=== PATIENT | male | born 1950 | race Caucasian/White ===

== ENCOUNTER → 2023-01-26 | Outpatient (CLI) | payer OTHER ==
--- NOTE | 2023-01-26 17:43 | CTL ---
EXAMINATION TYPE: CT Low Dose Lung DATE OF EXAM ORDERED: 01/26/2023 HISTORY: Smoking. Lung cancer screening CT DLP: History mGycm CT CTDI: 1.5 mGy Automated exposure control for dose reduction was used. SCREENING VISIT: Initial COMPARISON: None TECHNIQUE: Low dose computed tomography scan was performed through the chest at 1 mm thick sections a nd reconstructed images in the coronal plane at [address] DIAGNOSTIC QUALITY: Satisfactory FINDINGS: LUNG NODULES: None. 1. There is a 0.6 cm peripheral nodule left mid lung. Series 6 image 31 2. There is a 0.5 cm nodule peripheral right mid lung. Series 6 image 36 3. There is an area of pneumonitis in the posterior lateral right lung. Series 6 image 39. 4. There is a 0.2 cm peripheral nodule right lung. Series 6 image 40. 5. Apical scarring appears to be present. LUNGS: COPD: Severity: Moderately extensive Fibrosis: Severity: None Lymph nodes: None Other findings: None RIGHT PLEURAL SPACE: Effusion: None Calcification: None Thickening: None Pneumothorax: None LEFT PLEURAL SPACE: Effusion: None Calcification: None Thickening: None Pneumothorax: None HEART: Heart Size: Normal Coronary calcification: Moderate Pericardial effusion: None OTHER FINDINGS: Upper abdomen: Normal Bony thorax: Normal Supraclavicular region: Normal Other: Ascending thoracic aorta at the level the main pulmonary artery measures 4.0 cm. The main pul monary artery at the bifurcation measures 3.0 cm. IMPRESSION: Probably benign findings FOLLOW UP CT CHEST RECOMMENDATION: Follow-up CT chest [address] LUNG RAD: Lung-Rad 3 Probably Benign
== END | disposition home or self-care (01) ==
LOC: RADCTMAIN 10:43
DX: Z12.2 Encounter for screening for malignant neoplasm of respiratory organs (principal); F17.210 Nicotine dependence, cigarettes, uncomplicated
CPT/HCPCS: 71271

== ENCOUNTER → 2023-06-05 | Day surgery (SDC) | payer OTHER ==
[2023-05-31 11:34] VITALS: BMI 18.6
[~2023-06-05] MED LIST: ALPRAZolam 0.25 MG TAB PO PRN; ALPRAZolam 0.5 MG TAB PO PRN; ASPIRIN 325 MG TAB PO STA; HEPARIN SODIUM 1,000 UN/ML (10ML VL) IV ONE; HEPARIN SODIUM 1,000 UN/ML (10ML VL) ONE; HEPARIN SODIUM,PORCINE (1 ML) 2,500 UNIT in SODIUM CHLORIDE 0.9% 250 ML IRRIGATION PRN; HEPARIN SODIUM,PORCINE 10,000 UNIT in SODIUM CHLORIDE 0.9% 1,000 ML IRRIGATION PRN; IOPAMIDOL-370 100ML BTL INJ ONE; LIDOCAINE 1% INJ 10MG/ML (20 ML MDV) ONE; LIDOCAINE 1% INJ 10MG/ML (20 ML MDV) SQ ONE; METOPROLOL TARTRATE 50 MG TAB PO SCH; NITROGLYCERIN SL TABS 0.4 MG TAB SUBLINGUAL PRN; RX INFO: IV CONTRAST WAS GIVEN 1 EACH MISC MISCELLANE PRN; SACUBITRIL/VALSARTAN 24 MG-26 MG TABLET PO SCH; SODIUM CHLORIDE 0.9% 1,000 ML IV SCH; SODIUM CHLORIDE 0.9% 1,000 ML in EMPTY BAG 1 BAG IV SCH; VERAPAMIL 2.5 MG/ML 2 ML AMP ONE; VERAPAMIL SYRINGE (5 MG/10 ML) INTRAARTER ONE; fentaNYL (PF) 50 MCG/ML 2 ML AMP IVP ONE; fentaNYL (PF) 50 MCG/ML 2 ML AMP ONE
[2023-06-05 10:28] LABS: Basophils % (A) 0 %; Eosinophils # (A) 0.1 k/uL (0-0.7); Eosinophils % (A) 1 %; HCT 45.6 % (39.0-53.0); HGB 15.4 gm/dL (13.0-17.5); Lymphocytes # (A) 1.8 k/uL (1.0-4.8); Lymphocytes % (A) 20 %; MCH 33.9 pg (25.0-35.0); MCHC 33.8 g/dL (31.0-37.0); MCV 100.4 fL (80.0-100.0); Mean Platelet Volume 7.3; Monocytes # (A) 0.6 k/uL (0-1.0); Monocytes % (A) 7 %; Neutrophils # (A) 6.1 k/uL (1.3-7.7); Neutrophils % (A) 69 %; Platelet Count 229 k/uL (150-450); RBC 4.54 m/uL (4.30-5.90); RDW 13.5 % (11.5-15.5); WBC 8.8 k/uL (3.8-10.6)
[2023-06-05 10:41] LABS: African American GFR (CKD) >90 (>60 ml/min/1.73 sqM); Anion Gap 8 mmol/L; Blood Urea Nitrogen 7 mg/dL (9-20); Calcium 9.1 mg/dL (8.4-10.2); Carbon Dioxide 29 mmol/L (22-30); Chloride 91 mmol/L (98-107); Glucose 88 mg/dL (74-99); Non-African American GFR(CKD) >90 (>60 ml/min/1.73 sqM); Sodium 128 mmol/L (137-145)
[2023-06-05 10:54] LABS: Potassium 4.6 mmol/L (3.5-5.1)
[2023-06-05 11:01] VITALS: TEMP 96.9
[2023-06-05 12:12] LABS: O2 Sat Blood Gas 65.4 %
[2023-06-05 12:14] LABS: O2 Sat Blood Gas 95.8 %
[2023-06-05 12:15] LABS: O2 Sat Blood Gas 68.4 %
--- NOTE | 2023-06-05 12:56 | P.CARDCATH ---
Date of Procedure: 06/05/23 Description of Procedure: Cardiac Catheterization: The patient is a 73-year-old male with a known history of chronic tobacco use, hypertension was found to have atrial fibrillation and severe cardiomyopathy. Recommendations were made regarding cardiac catheterization, the risks and the complications were discussed with the patient who is in full understanding and agreement. Procedure Description: Patient was brought to quality assurance qa lab analyst in fasting semi-sedated state after receiving Fentanyl and Benadryl achieiving moderate conscious sedated state. Using Xylocaine Anesthesia and modified Seldinger technique, a 6-Austrian sheath was introduced in the right radial artery . Intravenous catheter in the right bas ilic vein was exchanged the 6-Austrian sheath. Right heart catheterization was performed using a Home-Ritchie catheter, multiple samples and pressures were obtained, cardiac output by thermodilution was calculated. Subsequently, selective coronary angiography was performed using a 5-Austrian 5 bend right Sasha and 3.5 left Sasha catheter. Multiple views of the coronary artery including hemiaxial views were obtained. The right Sasha catheter was used to cross the aortic valve and LVEDP was calculated. Following that, catheter and sheath were removed. Hemostasis was obtained with deployment of vascular band . There was no immediate complication. Patient was returned to room in stable condition. Of note, the patient received a total of 3500 units of intravenous heparin as well as intra-arterial verapamil. Findings: Fluoroscopy: Severe calcifications of all the coronary arteries was noted. Left main: This is a large-size vessel, bifurcating into LAD and left circumflex, left main has no obstructive disease. LAD: This is a large-size vessel, reaching to the apex, giving rise to a large diagonal branch. The LAD is severely calcified throughout its course but has no evidence of focal disease area Left circumflex: This is a large nondominant vessel giving rise to 3 obtuse marginal branch. The left circumflex has no evidence of high-grade stenosis RCA: This is a large dominant vessel, bifurcating distally to PDA and PLV. Heavily calcified throughout its course. At the distal segment there is an eccentric lesion of 50-60% stenosis, the rest of the vessel has no focal stenosis Left Ventriculogram: Not performed Hemodynamics: Per my artery saturation 65%, right atrium 68%, arterial 96%. Cardiac output by thermodilution 4.2 L/m and by Helio 4.7 L/m. Pulmonary artery systolic pressure of 39 with a diastolic of 22 and a mean of 30 mmHg, pulmonary Wedge pressure V-wave of 25 with a mean of 25 mmHg. Right ventricle systolic pressure of 36 with end-diastolic of 10 mmHg. Right atrium V-wave of 8 with a mean of 7 mmHg. Left ventricle end-diastolic pressure 12-14 mmHg. There was no gradient across the aortic valve. Conclusion: 1. Severely calcified coronary arteries 2. Moderate disease in the mid RCA 3. Right dominance 4. No evidence of significant pulmonary hypertension Recommendations: I would recommend to maximize medical therapy, the right coronary artery lesion does not appear to be a culprit lesion. The importance of smoking cessation will be emphasized. The findings and the recommendations were discussed with the patient and the family and they were in full understanding and agreement. Duration of sedation is 41 minutes.
[2023-06-05 15:21] VITALS: BP 128/62; PULSE 72; RESP 14
== END | disposition home or self-care (01) ==
LOC: CATHCVL 09:49
PROVIDERS: ATTEND Internal Medicine Interventional Cardiology
DX: I25.10 Atherosclerotic heart disease of native coronary artery without angina pectoris (principal); I42.8 Other cardiomyopathies; I73.9 Peripheral vascular disease, unspecified; I48.91 Unspecified atrial fibrillation; I10 Essential (primary) hypertension; Z79.899 Other long term (current) drug therapy
CPT/HCPCS: 93460; 80048; 85018; 82810; 85025; C1769 ×2; C1894; C1751; J2001; J3010; J1644; Q9967

== ENCOUNTER → 2023-09-12 | Outpatient (CLI) | payer OTHER ==
--- NOTE | 2023-09-12 14:08 | CT ---
Exam: CT Chest without contrast. Date: 11/08/2023. Comparison: 01/26/2023. This History: Lung nodule. Technique: CT examination of the chest was performed without contrast. Coronal and sagittal reformats were performed. CT dose lowering techniques were used, to include: automated exposure control, adjus tment for patient size, and/or use of iterative reconstruction. FINDINGS: Mediastinum and Marisol: There is no axillary, mediastinal or hilar lymphadenopathy. Pleural and Pericardial spaces: There are no pleural or pericardial effusions. Upper Abdomen: The visualized upper abdomen is unremarkable. Cardiovascular: There is moderate vascular calcification throughout the thoracic aorta without eviden ce of aneurysmal dilation. Significant diffuse coronary artery calcifications are seen. Lung Parenchyma and Airways: 5.3 mm right lower lobe nodule on series 4 image 35 is unchanged. Heart solid area of nodularity within the right lower lobe on series 4 image 37 measuring 1.1 cm is unchang ed. Pleural-based area of nodularity within the left lower lobe measuring 7.5 mm on series 4 image 25 . There is moderate to severe upper lobe predominant centrilobular emphysema. There are no new or enl arging nodules. Bones: Partial compression deformity of the superior endplate of L3 is noted and likely chronic. Ther e are no acute osseous abnormalities. IMPRESSION: 1. Unchanged pulmonary nodules as above. Follow-up in one year is recommended. 2. Moderate to severe emphysema. 3. Severe coronary artery calcifications.
== END | disposition home or self-care (01) ==
LOC: RADCTMAIN 13:23
PROVIDERS: ATTEND Family Medicine
DX: R91.8 Other nonspecific abnormal finding of lung field (principal); J43.9 Emphysema, unspecified; I25.10 Atherosclerotic heart disease of native coronary artery without angina pectoris
CPT/HCPCS: 71250

== ENCOUNTER 2023-11-27 09:27 | Day surgery (SDC) | payer OTHER ==
[~2023-11-27 09:27] MED LIST changes: -ALPRAZolam 0.5 MG TAB PO PRN; -ASPIRIN 325 MG TAB PO STA; +EMPTY BAG 1 BAG with SODIUM CHLORIDE 0.9% 1,000 ML IV SCH; -HEPARIN SODIUM 1,000 UN/ML (10ML VL) IV ONE; -HEPARIN SODIUM 1,000 UN/ML (10ML VL) ONE; -IOPAMIDOL-370 100ML BTL INJ ONE; -LIDOCAINE 1% INJ 10MG/ML (20 ML MDV) ONE; -LIDOCAINE 1% INJ 10MG/ML (20 ML MDV) SQ ONE; -METOPROLOL TARTRATE 50 MG TAB PO SCH; -NITROGLYCERIN SL TABS 0.4 MG TAB SUBLINGUAL PRN; -RX INFO: IV CONTRAST WAS GIVEN 1 EACH MISC MISCELLANE PRN; -SACUBITRIL/VALSARTAN 24 MG-26 MG TABLET PO SCH; -SODIUM CHLORIDE 0.9% 1,000 ML IV SCH; -SODIUM CHLORIDE 0.9% 1,000 ML in EMPTY BAG 1 BAG IV SCH; -VERAPAMIL 2.5 MG/ML 2 ML AMP ONE; -VERAPAMIL SYRINGE (5 MG/10 ML) INTRAARTER ONE; +ZOLPIDEM 5 MG TAB PO PRN; -fentaNYL (PF) 50 MCG/ML 2 ML AMP IVP ONE; -fentaNYL (PF) 50 MCG/ML 2 ML AMP ONE
[2023-11-27] MEDS: SODIUM CHLORIDE 0.9% 1,000 ML IV ONE ×2 (09:49→11:50)
[2023-11-27] MEDS: ASPIRIN 325 MG TAB PO PRN (09:59)
[2023-11-27 10:11] LABS: Basophils # (A) 0.1 k/uL (0-0.2); Basophils % (A) 1 %; Eosinophils # (A) 0.1 k/uL (0-0.7); Eosinophils % (A) 1 %; HCT 49.5 % (39.0-53.0); HGB 16.2 gm/dL (13.0-17.5); Lymphocytes # (A) 1.8 k/uL (1.0-4.8); Lymphocytes % (A) 25 %; MCH 33.7 pg (25.0-35.0); MCHC 32.6 g/dL (31.0-37.0); MCV 103.3 fL (80.0-100.0); Macrocytosis Slight; Mean Platelet Volume 7.4; Monocytes # (A) 0.5 k/uL (0-1.0); Monocytes % (A) 7 %; Neutrophils # (A) 4.7 k/uL (1.3-7.7); Neutrophils % (A) 64 %; Platelet Count 224 k/uL (150-450); RDW 12.6 % (11.5-15.5); WBC 7.4 k/uL (3.8-10.6)
[2023-11-27 10:18] LABS: Glucose,Whole Blood 56 mg/dL (70-110)
[2023-11-27] MEDS: DEXTROSE 50% SYRINGE 50 ML IVP STA (10:18)
[2023-11-27] MEDS: DEXTROSE 50% SYRINGE 50 ML IVP ONE (10:18)
[2023-11-27 10:30] LABS: African American GFR (CKD) >90 (>60 ml/min/1.73 sqM); Anion Gap 8 mmol/L; Blood Urea Nitrogen 8 mg/dL (9-20); Calcium 9.4 mg/dL (8.4-10.2); Carbon Dioxide 27 mmol/L (22-30); Chloride 94 mmol/L (98-107); Glucose 79 mg/dL (74-99); Non-African American GFR(CKD) >90 (>60 ml/min/1.73 sqM); Potassium 4.6 mmol/L (3.5-5.1); Sodium 129 mmol/L (137-145)
[2023-11-27 10:37] VITALS: TEMP 97.7
[2023-11-27 10:39] LABS: Glucose,Whole Blood 75 mg/dL (70-110)
[2023-11-27] MEDS ORDERED: HEPARIN SODIUM 1,000 UN/ML (10ML VL) ONE (10:47)
[2023-11-27] MEDS ORDERED: fentaNYL (PF) 50 MCG/ML 2 ML AMP ONE (10:47)
[2023-11-27] MEDS ORDERED: VERAPAMIL 2.5 MG/ML 2 ML AMP ONE (10:47)
[2023-11-27] MEDS: fentaNYL (PF) 50 MCG/1 ML VIAL IVP ONE (11:16)
[2023-11-27] MEDS: LIDOCAINE 2% (PF) 20 MG/ML 5 ML VIAL SQ ONE (11:16)
[2023-11-27] MEDS: MIDAZOLAM 2 MG/2 ML VIAL IVP ONE (11:16)
[2023-11-27] MEDS: HEPARIN SODIUM 1,000 UN/ML (10ML VL) IVP ONE (11:20)
[2023-11-27] MEDS: IOPAMIDOL-370 100ML BTL INTRATHECA ONE (11:41)
--- NOTE | 2023-11-27 12:24 | IR ---
EXAMINATION TYPE: IR angio abdominal w runoff DATE OF EXAM: 11/27/2023 COMPARISON: NONE HISTORY: Fluoroscopy time. Fluoroscopy was provided to the referring clinician.
[2023-11-27] MEDS: SODIUM CHLORIDE 0.9% 500 ML 500 ML IV ONE (14:30)
[2023-11-27 17:26] VITALS: BP 113/59; PULSE 64; RESP 16
--- NOTE | 2023-11-27 22:54 | P.PCN ---
Description of Procedure: PROCEDURES PERFORMED: Abdominal angiography with bilateral runoff INDICATION: PAD, abnormal LE ultrasound CONSENT:I have discussed the risks, benefits and alternative therapies for the above-mentioned procedure and for both sedation/analgesia as well as necessary blood product administration, if indicated, as they pertain to this patient. The patient has indicated understanding and acceptance of the risks and procedures discussed. PROCEDURE: After the risks, benefits and alternatives of the above mentioned procedure explained in detail with the patient, informed consent was obtained. Patient was taken to the catheterization lab and prepped and draped in usual fashion. 1% lidocaine was used to anesthetize the right radial area. A 6- Latvian sheath was placed in the right radial artery using modified Seldinger technique. A 5-Latvian pigtail catheter was inserted to the abdominal aorta with some difficulty given significant toruosity of the aorta, type 4 arch. DSA imaging was obtained. Patient tolerated the diagnostic portion well. The patient tolerated the procedure well. The right radial sheath was removed and a TR band was placed and hemostasis was achieved. Patient was transported back to the post catheterization holding area in stable condition. Conscious Sedation: Patient was monitored under the direct supervision of vision of myself for conscious sedation using Versed and fentanyl for a total duration of 23 minutes Abdominal aorta: The abdominal aorta has mild to moderate calcifcation. Renal arteries are patent without significant stenosis. There is some tortousity after the renal arteries. There is no significant dissection or aneurysm. There is no significant stenosis. Right lower extremity: Right common iliac artery: There is a 50% mid common iliac artery stenosis. Right external iliac artery: There is no significant stenosis. Right internal iliac artery: There is no significant stenosis. Right common femoral artery: There is 100% calcified right common femoral artery stenosis. Right profunda: There is no obvious antegrade flow from the profunda and appears to be occluded proximally. Right SFA: There is 100% proximal SFA stenosis and then has reconstitution at the mid SFA. The mid to distal SFA has a more focal 90% stenosis. Right popliteal artery: There is 100% P1 stenosis and then reconstitutes Right tibioperoneal trunk: There is 99% stenosi proximal TP trunk stenosis. Below the knee flow appears to be supplied only by collaterals. Left lower extremity: Left common iliac artery: There is no significant stenosis. Left external iliac artery: There is 100% distal left external iliac artery into left common femoral artery stenosis. Left internal iliac artery: There is no significant stenosis. Left common femoral artery: There is 100% stenosis. Left profunda: There is no significant stenosis. Left SFA: There is 100% proximal to mid stenosis and reconstitutes at the distal SFA Left popliteal artery: There is no significant stenosis. Left tibioperoneal trunk: There is no significant stenosis. There does not appear to be any identifiable arteries with 0 vessel runoff and flow supplied by collaterals. FINAL IMPRESSION: 1. Peripheral arterial disease on the right lower extermity as described above including 100% right common femoral artery stenosis, right profunda 100% stenosis, 100% proximal SFA stenosis, 100% popliteal stenosis, 99% stenosis of the TP trunk and 0 vessel runoff on the right with flow supplied by collaterals 2. Peripheral arterial disease on the left lower extermity as described above including 100% distal external iliac into left SFA stenosis with reconstitution of the distal left SFA with 0 vessel runoff below the knee. 3. Tobacco abuse PLAN: 1. Aggressive risk factor modification per most recent ACC/AHA guidelines. 2. PAD which is extensive and involving bilateral femoral arteries and not amenable to percutaneous approach. Consider medical therapy or surgical evaluation for endarterectomy/ bypass if claudication is lifestyle limiting. Tobacco cessation.
== END 2023-11-27 16:45 | disposition home or self-care (01) ==
LOC: CATHCVL 09:27
PROVIDERS: ATTEND Internal Medicine
DX: I70.213 Atherosclerosis of native arteries of extremities with intermittent claudication, bilateral legs (principal); I48.91 Unspecified atrial fibrillation; I10 Essential (primary) hypertension; E78.5 Hyperlipidemia, unspecified; F17.200 Nicotine dependence, unspecified, uncomplicated; Z79.01 Long term (current) use of anticoagulants; Z79.899 Other long term (current) drug therapy; Z88.2 Allergy status to sulfonamides; Z88.0 Allergy status to penicillin; Z88.8 Allergy status to other drugs, medicaments and biological substances
CPT/HCPCS: 36200; 75625; 75716; 80048; 85025; 99152; C1769 ×3; C1894; J2250; J1644; Q9967; J2001; J3010